=== PATIENT | female | born 1995 | race Caucasian/White ===

== ENCOUNTER → 2017-02-28 | Outpatient (CLI) | payer OTHER ==
--- NOTE | 2017-03-01 07:55 | US ---
EXAMINATION TYPE: US kidneys/renal and bladder DATE OF EXAM: 02/28/2017 6:13 PM COMPARISON: NONE CLINICAL HISTORY: RLQ Pain R10.31, R10.9 R Flank Pain. Patient is 35 weeks . EXAM MEASUREMENTS: Right Kidney: 10.8 x 6.4 x 4.2 cm Left Kidney: 11.2 x 4.3 x 4.7 cm Post Void Residual Volume: emptied fully Right Kidney: mild hydronephrosis is noted Left Kidney: No hydronephrosis or masses seen Bladder: wnl Bilateral Jets seen: yes Normal Post Void Residual: Yes IMPRESSION: Mild right hydronephrosis with no definite nephrolithiasis.
== END | disposition home or self-care (01) ==
LOC: RADUSMAIN 17:46
PROVIDERS: ATTEND Obstetrics & Gynecology
DX: N13.30 Unspecified hydronephrosis (principal)
CPT/HCPCS: 76770

== ENCOUNTER 2017-03-23 23:03 | Inpatient (IN) | payer OTHER ==
--- NOTE | 2017-03-23 23:33 | P.HPOB ---
History of Present Illness H&P Date: 03/23/17 Chief Complaint: Strong regular uterine contractions This is a 21-year-old white female 2 para 1001 EDC 04/03/2017 at 38-3/7 weeks' gestation. Patient presents tonight to our hospital, despite having care with a physician out of [place], [place]. She states she has been having strong regular uterine contractions for several hours. She denies vaginal bleeding or fluid leakage. Fetus is been active throughout the . Past medical history is essentially negative. Past surgical history negative. Current medications vitamins daily and patient is on day 4 of Keflex therapy for urinary tract infection. ALLERGIES none known. Social history patient is a smoker, she states 6 cigarettes per day for approximately 2-3 years. She denies alcohol or drug use with the . Family history is noncontributory. Past obstetric history 6 lbs. 13 oz. vaginal delivery 2014 of liveborn female , patient states uncomplicated. history is unknown, care has been given through Dr. Valenzuela in [place], [place]. On exam this is a young female, 5 foot 2 inches, 157 pounds, temperature 97.5, blood pressure 109/59, 1:15 pulse, 96% O2 saturation. The general physical exam is within normal limits. The cervix is 8 cm dilated, 100% effaced, -2 station, vertex presentation. Artificial amniorrhexis reveals clear fluid. heart rate is in the 140s with overall diminished variability, patient states she smoked a cigarette in the car before coming up to the unit this evening. No decelerations are noted. Impression: 38-3/7 weeks intrauterine , care elsewhere, here in active labor. Patient states group B strep cultures are negative. She is currently on Keflex for UTI. Plan: Close maternal and surveillance. Anticipate normal spontaneous vaginal delivery. I will give penicillin G 6 million units now for unknown group B strep status as well as current UTI. Epidural was offered at this time , and patient declines. Review of Systems Constitutional: Reports as per HPI Past Medical History Past Medical History: No Reported History History of Any Multi-Drug Resistant Organisms: None Reported Past Surgical History: No Surgical Hx Reported Past Psychological History: No Psychological Hx Reported Smoking Status: Never smoker Past Alcohol Use History: None Reported Past Drug Use History: None Reported Medications and Allergies Home Medications and Allergies Comment(s): keflex for UTI, dosage unknown Home Medications Medication Instructions Recorded Confirmed Type No Known Home Medications [No 10/20/14 10/20/14 History Known Home Medications] Allergies Allergy/AdvReac Type Severity Reaction Status Date / Time No Known Allergies Allergy Verified 10/20/14 19:14 Exam See dictation under HPI, please Assessment and Plan Plan: Close maternal and surveillance. We'll give penicillin G 6 million units now for unknown group B strep status as well as current urinary tract infection. Epidural has been offered, and is declined. Anticipate normal spontaneous vaginal delivery. Time with Patient: Less than 30
[2017-03-23] MEDS ORDERED: OXYTOCIN 20 UNITS/1000 ML NS 1,000 ML IV SCH (23:45)
[2017-03-23] MEDS ORDERED: LACTATED RINGERS 1,000 ML IV SCH ×2 (23:45)
[2017-03-23] MEDS ORDERED: TERBUTALINE 1 MG/ML VIAL SQ PRN ×2 (23:54→23:56)
[2017-03-23] MEDS ORDERED: OXYTOCIN 10 UNIT/ML 1 ML VIAL IM PRN ×2 (23:54→23:56)
[2017-03-23] MEDS ORDERED: LIDOCAINE 1% (PF) 10 MG/ML (30 ML SDV) SQ PRN ×2 (23:54→23:56)
[2017-03-23] MEDS ORDERED: CARBOPROST TROMETHAMINE 250 MCG/ML 1 ML AMP IM PRN ×2 (23:54→23:56)
[2017-03-23] MEDS ORDERED: METHYLERGONOVINE 0.2 MG/ML 1 ML AMP IM PRN ×2 (23:54→23:56)
[2017-03-24] MEDS ORDERED: LIDOCAINE 1% (PF) 10 MG/ML (30 ML SDV) SQ PRN (00:02)
[2017-03-24] MEDS ORDERED: CARBOPROST TROMETHAMINE 250 MCG/ML 1 ML AMP IM PRN (00:02)
[2017-03-24] MEDS ORDERED: TERBUTALINE 1 MG/ML VIAL SQ PRN (00:02)
[2017-03-24] MEDS ORDERED: OXYTOCIN 10 UNIT/ML 1 ML VIAL IM PRN (00:02)
[2017-03-24] MEDS ORDERED: METHYLERGONOVINE 0.2 MG/ML 1 ML AMP IM PRN (00:02)
[2017-03-24] MEDS ORDERED: PENICILLIN G POTASSIUM 5,000,000 UNIT in DEXTROSE 5% IN WATER 100 ML IVPB STA ×2 (00:09)
[2017-03-24] MEDS ORDERED: BUTORPHANOL 1 MG/ML 1 ML VIAL IV PRN (00:13)
[2017-03-24] MEDS ORDERED: LACTATED RINGERS 1,000 ML IV SCH (00:15)
[2017-03-24 00:36] LABS: Basophils % (A) 0 %; CHCM 34.1; Eosinophils % (A) 0 %; HCT 34.1 % (34.0-46.0); HDW 3.07; HGB 11.6 gm/dL (11.4-16.0); Luc # (Auto) 0.21; Luc % (Auto) 2; Lymphocytes # (A) 1.2 k/uL (1.0-4.8); Lymphocytes % (A) 8 %; MCH 30.9 pg (25.0-35.0); MCHC 33.9 g/dL (31.0-37.0); MCV 91.2 fL (80.0-100.0); Mean Platelet Volume 9.2; Monocytes # (A) 0.8 k/uL (0-1.0); Monocytes % (A) 6 %; Neutrophils # (A) 12.1 k/uL (1.3-7.7); Neutrophils % (A) 85 %; RBC 3.74 m/uL (3.80-5.40); RDW 12.8 % (11.5-15.5); WBC 14.3 k/uL (4.0-11.0); WBC (Perox) 15.17
[2017-03-24] MEDS ORDERED: diphenhydrAMINE 25 MG CAP PO PRN (00:49)
[2017-03-24] MEDS ORDERED: SIMETHICONE 80 MG CHEWABLE PO PRN (00:49)
[2017-03-24] MEDS ORDERED: WITCH HAZEL 1 EACH MED..PAD TOPICAL PRN (00:49)
[2017-03-24] MEDS ORDERED: LANOLIN CREAM 5 GM TUBE TOPICAL PRN (00:49)
[2017-03-24] MEDS ORDERED: BENZOCAINE/MENTHOL SPRAY 1 GM/SPRAY AEROSOL TOPICAL PRN (00:49)
[2017-03-24] MEDS ORDERED: HYDROCORTISONE 2.5% RECTAL CREAM 30 GM TUBE RECTAL PRN (00:49)
[2017-03-24] MEDS ORDERED: ZOLPIDEM 5 MG TAB PO PRN (00:49)
[2017-03-24] MEDS ORDERED: ACETAMINOPHEN TAB 325 MG TAB PO PRN (00:49)
[2017-03-24] MEDS ORDERED: diphenhydrAMINE ELIXIR 25 MG/10 ML CUP PO PRN (00:49)
[2017-03-24] MEDS ORDERED: diphenhydrAMINE 50 MG/ML 1 ML VIAL IVP PRN ×2 (00:49)
[2017-03-24] MEDS ORDERED: diphenhydrAMINE 50 MG CAP PO PRN (00:49)
--- NOTE | 2017-03-24 00:49 | P.PROBDLV ---
Vaginal Delivery Note - . Vaginal Delivery Note: This is a 21-year-old white female 3 para 1011 EDC 04/03/2017 at 38-5/7 weeks' gestation. Patient presented in active spontaneous labor. She did receive care at another institution, but chose to come to our hospital for reasons unknown. Fetus has been active throughout the . She denied vaginal bleeding or fluid leakage. On admission she was 8 cm dilated, 100% effaced, -1 station, vertex presentation. heart rate was in the 140s with good variability consistent with reactive NST. Artificial amniorrhexis revealed clear fluid. Epidural was offered, but declined per the patient. She did receive Stadol 1 mg. Patient progressed well through the first stage of labor. She was judged to be completely dilated and began the second stage of labor at that time. The perineal body was prepped and draped in the usual sterile fashion. The infant' s head was delivered in the occiput anterior position and she restituted accordingly. There was no nuchal cord noted. The left or anterior shoulder was delivered easily from underneath the pubic symphysis at which time the oropharynx, nasopharynx and external nares were all bulb suctioned on the perineal body. Patient was officially delivered of a liveborn female infant at 0032 hours. The umbilical cord was doubly clamped and ligated, she was handed to waiting nurses for evaluation where scores of 8 and 9 at one and 5 minutes respectively were given. Cord blood was sent to the lab for unknown Rh status. Penicillin G was ordered for unknown group B strep status, but this had not been received from the pharmacy by time of delivery. The uterus was massaged, and the placenta delivered spontaneously, intact with trivascular cord at 0035 hours. At this time inspection of the cervix, vagina, perineum, periurethral, and perirectal areas revealed no lacerations and no defects. Total estimated blood loss 250 mL 's. All sponge needle and instrument counts are correct at the end of the procedure. Patient and her fianc are allowed to begin the bonding experience in the LDR. weighed 3395 g or 8 lbs. 7 oz.
[2017-03-24] MEDS: IBUPROFEN 600 MG TAB PO PRN ×3 (01:06→22:00)
[2017-03-24] MEDS ORDERED: PENICILLIN G POTASSIUM 2,500,000 UNIT in DEXTROSE 5% IN WATER 100 ML IVPB SCH ×2 (04:30)
[2017-03-24] MEDS ORDERED: NON-FORMULARY DRUG (Pnv With Ca,No.72/Iron/Fa [Prenatal Plus Tablet] 1 TAB) PO SCH (09:00)
[2017-03-24] MEDS: SENNOSIDES-DOCUSATE SODIUM 1 EACH TAB PO SCH (13:09)
[2017-03-24] MEDS ORDERED: Rhogam IMMUNE GLOBULIN 1,500 UNIT/1 ML IM ONE (17:04)
[2017-03-24] MEDS: Acetaminophen-Codeine 300-30mg TAB PO PRN (23:28)
[2017-03-25] MEDS: SENNOSIDES-DOCUSATE SODIUM 1 EACH TAB PO SCH (01:00)
--- NOTE | 2017-03-25 08:32 | P.DS ---
Providers Date of admission: 03/23/17 23:15 Expected date of discharge: 03/25/17 Attending physician: Josette Mace Primary care physician: Josette Mace - Discharge Diagnosis(es) (1) Normal spontaneous vaginal delivery Current Visit: Yes Status: Acute (2) Rh negative, maternal Current Visit: Yes Status: Acute (3) Spontaneous onset of labor Current Visit: Yes Status: Acute Hospital Course: This is a 21-year-old 3 now para 2012 woman who presented in spontaneous active labor at term. Following admission she underwent artificial rupture of membranes. She received Stadol. She went on to deliver a liveborn female infant over an intact perineum with Apgars of 8 at 1 minute and 9 at 5 minutes weighing 8 lbs. 7 oz. The patient's course was unremarkable. By the morning of day #1 she was ambulating and voiding without difficulty, tolerating a general diet, her lochia was minimal and her exam was benign. She was therefore discharged home with routine instructions for care and follow-up. Her doctor is in [place], [place] and she plans on having her care there. She'll share a history of depression with her delivery in 2014. She was on Zoloft at that time. We will send in a prescription for this medication to have on hand should she need it. She is strongly encouraged should she feel like she is having worsening depression to either call our office or her physician in [place] for immediate follow-up. She does report good family support at home. Procedures: Normal spontaneous vaginal delivery Patient Condition at Discharge: Good Plan - Discharge Summary New Discharge Prescriptions: Sertraline HCl [Zoloft] 50 mg PO DAILY #30 tablet Discharge Medication List Pnv with Ca,No.72/Iron/FA [ Plus Tablet] 1 tab PO DAILY 03/23/17 [ History] Sertraline HCl [Zoloft] 50 mg PO DAILY #30 tablet 03/25/17 [Rx] Activity/Diet/Wound Care/Special Instructions: Follow-up with primary degreaser operator in 6 weeks . Call with any concerning signs or symptoms including heavy vaginal bleeding, severe abdominal pain, fever greater than 101, swelling or redness of the lower extremities, foul vaginal discharge, or signs of depression. May start zoloft 50 mg daily with signs of post depression. Nothing in the vagina for 6 weeks after delivery, specifically no intercourse. Discharge Disposition: HOME SELF-CARE
[2017-03-25 08:59] VITALS: BP 103/71; PULSE 66; RESP 18; TEMP 97.5
[2017-03-25] MEDS: Acetaminophen-Codeine 300-30mg TAB PO PRN (11:14)
== END 2017-03-25 11:50 | disposition home or self-care (01) | DRG 774 ==
LOC: FBPOP 23:03 → 4FBP 23:15
PROVIDERS: ADMIT Obstetrics & Gynecology; ATTEND Obstetrics & Gynecology
PROC: 10E0XZZ Delivery of Products of Conception, External Approach (ICD-10-PCS; principal; 2017-03-24)
PROC: 3E0234Z Introduction of Serum, Toxoid and Vaccine into Muscle, Percutaneous Approach (ICD-10-PCS; 2017-03-24)
DX: O98.82 Other maternal infectious and parasitic diseases complicating childbirth (principal); N39.0 Urinary tract infection, site not specified; O36.0930 Maternal care for other rhesus isoimmunization, third trimester, not applicable or unspecified; O99.334 Smoking (tobacco) complicating childbirth; F17.210 Nicotine dependence, cigarettes, uncomplicated; Z37.0 Single live birth; Z3A.38 38 weeks gestation of pregnancy; Z79.899 Other long term (current) drug therapy; Z86.59 Personal history of other mental and behavioral disorders
CPT/HCPCS: 85025; 85461; 86762; 86850; 86870; 86880; 86900; 86901; 88307

== ENCOUNTER 2017-12-27 00:02 | Outpatient (CLI) | payer OTHER ==
[2017-12-27 01:30] VITALS: BP 135/62; PULSE 111; RESP 16; TEMP 97.2
--- NOTE | 2017-12-27 06:11 | P.MSEPDOC ---
Presenting Problems - Arrival Data Date of Arrival on Unit: 12/27/17 Time of Arrival on Unit: 00:02 Mode of Transport: Wheelchair - Complaint OB-Reason for Admission/Chief Complaint: Possible Onset of Labor Comment: contx all day, became more painful around 7pm Medical History - Information : 4 Para: 2 Term: 2 : 0 Abortions: Spontaneous or Elective: 1 Number of Living Children: 2 - Gestational Age Gestational Age by NAVJOT (wks/days): 35 Weeks and 0 Days - History Complications: Placenta Previa Review of Systems - Review of Systems Constitutional: No problems Breast: No problems ENT: No problems Cardiovascular: No problems Respiratory: No problems Gastrointestinal: No problems Genitourinary: No problems Musculoskeletal: No problems Neurological: No problems Skin: No problems Vital Signs - Temperature Temperature: 97.2 F Temperature Source: Temporal Artery Scan - Pulse Right Sitting Brachial Pulse Rate: 111 Pulse Assessment Method: Automatic Cuff - Respirations Respiratory Rate: 16 Oxygen Delivery Method: Room Air - Blood Pressure Right Arm Sitting Blood Pressure: 135/62 Blood Pressure Mean: 86 Blood Pressure Source: Automatic Cuff Medical Screen Scoring (Pre) - Cervical Exam Dilation: Exam Deferred Effacement: Exam Deferred Membranes: Intact - Uterine Contractions Frequency: < 36 weeks = 6 Duration: > 40 seconds = 2 Intensity: N/A - Maternal Vital Signs Maternal Temperature: N/A Maternal Blood Pressure: N/A Signs of Preeclampsia: N/A Maternal Respirations: N/A - Pain Assessment Pain Location and Character: Lower, Abdomen Pain Scale Used: Numeric (1 - 10) Pain Intensity: 7 Pain Management Goal: 3 Pain Description: *Acute, Cramping Pain Radiation Location: n/a Pain Frequency: Intermittent Pain Duration: 6 Pain Duration Units: Hours Pain Behavior: Vocalization Pain Aggravating Factors: Activity - Maternal Trauma Maternal Trauma: N/A - Assessment Baseline FHR: 135 Heart Rate - NICHD Category: Category I (Normal) = 0 NST: Reactive Position: N/A - Total Score Total Score (Pre): 8 - Level of Risk Level of Risk: Medium (6-9) Physician Notification (Pre) - Physician Notified Physician Notified Date: 12/27/17 Physician Notified Time: 00:46 Physician/Practitioner Notifed:: sue Spoke With: sue New Order Received: Yes - Notification Comment Comment: pt to be discharged home, to call dispenser operator dee. Disposition - Disposition OB Disposition: Discharge to home Discharge Date: 12/27/17 Discharge Time: 01:07 I agree with the RN Medical Screening Exam: Yes Risk & Benefit of care provided described in d/c instruction: Yes Diagnosis: FALSE LABOR BEFORE 37 COMPLETED WEEKS OF GEST, THIRD TRI (Patient is getting care in [facility]. She reports having a placenta previa and care per a nurse dispenser operator there. Patient is having no bleeding and was found not to be in labor. Patient instructed to call her physician this evening for further follow-up and obviously advised not to have a vaginal delivery with a placenta previa.)
== END 2017-12-27 01:07 | disposition home or self-care (01) ==
LOC: FBPOP 00:02
PROVIDERS: ATTEND Obstetrics & Gynecology
DX: O47.03 False labor before 37 completed weeks of gestation, third trimester (principal); Z3A.35 35 weeks gestation of pregnancy
CPT/HCPCS: 59025; G0463; 99213

== ENCOUNTER 2019-07-26 11:55 | Emergency (ER) | payer OTHER ==
[2019-07-26 11:59] VITALS: RESP 18
[2019-07-26 13:23] LABS: Basophils % (A) 0 %; Eosinophils # (A) 0.3 k/uL (0-0.7); Eosinophils % (A) 4 %; HCT 40.4 % (34.0-46.0); HGB 13.9 gm/dL (11.4-16.0); Lymphocytes # (A) 2.4 k/uL (1.0-4.8); Lymphocytes % (A) 31 %; MCH 30.5 pg (25.0-35.0); MCHC 34.5 g/dL (31.0-37.0); MCV 88.3 fL (80.0-100.0); Monocytes # (A) 0.5 k/uL (0-1.0); Monocytes % (A) 7 %; Neutrophils # (A) 4.4 k/uL (1.3-7.7); Neutrophils % (A) 57 %; Platelet Count 281 k/uL (150-450); RBC 4.57 m/uL (3.80-5.40); RDW 14.8 % (11.5-15.5); WBC 7.7 k/uL (3.8-10.6)
--- NOTE | 2019-07-26 13:32 | ED ---
Female Urogenital HPI - General Chief complaint: Urogenital Stated complaint: Poss Ectopic Pregancy Time Seen by Provider: 07/26/19 12:27 Source: patient, RN notes reviewed, old records reviewed Mode of arrival: ambulatory Limitations: no limitations - History of Present Illness Initial comments: This is a 24-year-old female the ER for evaluation. Today patient denying for evaluation regards to possible ectopic versus abnormal outpatient. Patient's has had multiple pregnancies, 4 living kids at least one . Patient was presenting for and clinic limited ultrasound. Unable to find a positive IUP. Patient sent ER for formal ultrasound for evaluation regarding patient's . Patient denies any vaginal bleeding or pain. No other complaints MD Complaint: other (Positive with no IUP noted on ultrasound) -: unknown Location: suprapubic (No pain) Quality: other (Asymptomatic) Improves with: none Worsens with: none Last Menstrual Period: 05/29/19 Patient : Yes Associated Symptoms: denies other symptoms - Related Data Home Medications Medication Instructions Recorded Confirmed No Known Home Medications 07/26/19 07/26/19 Allergies Allergy/AdvReac Type Severity Reaction Status Date / Time No Known Allergies Allergy Verified 07/26/19 12:18 Review of Systems ROS Statement: Those systems with pertinent positive or pertinent negative responses have been documented in the HPI. ROS Other: All systems not noted in ROS Statement are negative. Past Medical History Past Medical History: No Reported History History of Any Multi-Drug Resistant Organisms: MRSA Date of last positivie culture/infection: unknown MDRO Source:: right axilla Past Surgical History: No Surgical Hx Reported Past Anesthesia/Blood Transfusion Reactions: No Reported Reaction Past Psychological History: No Psychological Hx Reported Smoking Status: Current every day smoker Past Alcohol Use History: None Reported Past Drug Use History: None Reported - Past Family History Mother Family Medical History: Cancer General Exam Limitations: no limitations General appearance: alert, in no apparent distress Head exam: Present: atraumatic, normocephalic, normal inspection Eye exam: Present: normal appearance, EOMI. Absent: scleral icterus, conjunctival injection, periorbital swelling ENT exam: Present: normal exam, mucous membranes moist Neck exam: Present: normal inspection. Absent: tenderness, meningismus, lymphadenopathy Respiratory exam: Present: normal lung sounds bilaterally. Absent: respiratory distress, wheezes, rales, rhonchi, stridor Cardiovascular Exam: Present: regular rate, normal rhythm, normal heart sounds. Absent: systolic murmur, diastolic murmur, rubs, gallop, clicks GI/Abdominal exam: Present: soft, normal bowel sounds. Absent: distended, tenderness, guarding, rebound, rigid Extremities exam: Present: normal inspection, full ROM, normal capillary refill. Absent: tenderness, pedal edema, joint swelling, calf tenderness Back exam: Present: normal inspection Neurological exam: Present: alert, oriented X3, CN II-XII intact Psychiatric exam: Present: normal affect, normal mood Skin exam: Present: warm, dry, intact, normal color. Absent: rash Course Vital Signs 07/26/19 11:56 Temperature 97.9 F Pulse Rate 105 H Respiratory 18 Rate Blood Pressure 133/80 O2 Sat by Pulse 99 Oximetry - Reevaluation(s) Reevaluation #1: 07/26/19 13:32 Medical records reviewed Reevaluation #2: 07/26/19 14:30 Spoke with patient at length regarding findings here in the ER, possible ectopic versus early versus versus molar . Patient's questions answered, understand necessity for repeat lab testing in 2 days - Consultations Consultation #1: Spoke with Dr. Barrientos regarding patient, informed of patient's findings, will follow patient in 2 days Medical Decision Making - Medical Decision Making 22 female the ER with inconclusive early , molar , ectopic or . Patient has no findings on ultrasound currently, beta hCG is significantly elevated at 19,000, patient follow-up with OB - Lab Data Result diagrams: 07/26/19 12:51 Lab Results 07/26/19 07/26/19 07/26/19 Range/Units 12:51 12:51 12:51 WBC 7.7 (3.8-10.6) k/uL RBC 4.57 (3.80-5.40) m/uL Hgb 13.9 (11.4-16.0) gm/dL Hct 40.4 (34.0-46.0) % MCV 88.3 (80.0-100.0) fL MCH 30.5 (25.0-35.0) pg MCHC 34.5 (31.0-37.0) g/dL RDW 14.8 (11.5-15.5) % Plt Count 281 (150-450) k/uL Neutrophils % 57 % Lymphocytes % 31 % Monocytes % 7 % Eosinophils % 4 % Basophils % 0 % Neutrophils # 4.4 (1.3-7.7) k/uL Lymphocytes # 2.4 (1.0-4.8) k/uL Monocytes # 0.5 (0-1.0) k/uL Eosinophils # 0.3 (0-0.7) k/uL Basophils # 0.0 (0-0.2) k/uL HCG, Quant 9208.8 mIU/mL Blood Type B Negative Blood Type Recheck B Neg Bld Type Recheck Status No Antibody Screen NEGATIVE Spec Expiration Date 07/29/2019 - 7528 - Radiology Data Radiology results: report reviewed ([facility] shows no IUP, no ectopic ), image reviewed Disposition Clinical Impression: Narrative: Repeat Bhcg - 2 days r/o Ectopic Disposition: HOME SELF-CARE Condition: Good Instructions (If sedation given, give patient instructions): (ED), Ectopic (DC) Is patient prescribed a controlled substance at d/c from ED?: No Referrals: None,Stated [Primary Care Provider] - 1-2 days
--- NOTE | 2019-07-26 13:59 | US ---
EXAMINATION TYPE: Transabdominal DATE OF EXAM: 07/26/2019 1:49 PM COMPARISON: NONE CLINICAL HISTORY: pain. Went to clinic today and they could not find a fetus, no pain, no b leeding EXAM PERFORMED: OBTA/OBTV EXAM MEASUREMENTS: GESTATIONAL AGE / DATING Physician Established: Not yet established Dates by LMP: (8 weeks/2 days) EDC: 03/04/2020 Dates by First Scan: No previous this is first scan Dates by Current Scan for: No IUP seen at this time MATERNAL ANATOMY Uterus: 8.6 x 5.7 x 5.3cm Right Ovary: 3.1 x 2.5 x 1.9cm Left Ovary: 2.8 x 2.2 x 2.9cm, 1.8cm cystic area noted Post CDS / Adnexa: mild free fluid Presence of free fluid: mild within cds and right adnexa Presence of corpus luteal cyst: possible on the right = 2.1cm Presence of subchorionic bleed: no GESTATION / SURVEY Endometrium was thickened = 3.1cm, with no signs of IUP Date of LMP: 05/29/2019 Beta HcG (if available): 9,208 IMPRESSION: No evident intrauterine . There is an abnormal thickened endometrium and free fluid within t he pelvis. No evident adnexal mass to suggest ectopic . Correlate clinically.
[2019-07-26 14:30] LABS: Appearance,Urine Clear (Clear); Bilirubin,Urine Negative (Negative); Blood,Urine Negative (Negative); Color,Urine Yellow; Glucose,Urine (UA) Negative (Negative); Ketones,Urine Negative (Negative); Leukocyte Esterase,Urine Negative (Negative); Nitrite,Urine Negative (Negative); Protein,Urine Negative (Negative); Specific Gravity,Urine 1.024 (1.001-1.035); Urobilinogen,Urine <2.0 mg/dL (<2.0)
[2019-07-26 15:04] VITALS: BP 121/74; PULSE 68; TEMP 98
== END 2019-07-26 15:04 | disposition home or self-care (01) ==
LOC: EC 11:55
DX: Z36.9 Encounter for antenatal screening, unspecified (principal); O99.332 Smoking (tobacco) complicating pregnancy, second trimester; F17.200 Nicotine dependence, unspecified, uncomplicated; Z86.14 Personal history of Methicillin resistant Staphylococcus aureus infection; Z3A.14 14 weeks gestation of pregnancy
CPT/HCPCS: 36415; 76801; 76817; 81003; 84702; 85025; 86850; 86900; 86901; 99284

== ENCOUNTER → 2019-07-28 | Outpatient (CLI) | payer OTHER | END | disposition home or self-care (01) | LOC: LABMAIN 11:21 | PROVIDERS: ATTEND Emergency Medicine | DX: Z36.9 Encounter for antenatal screening, unspecified (principal) | CPT/HCPCS: 36415; 84702 ==

== ENCOUNTER → 2019-07-30 | Outpatient (CLI) | payer OTHER | END | disposition home or self-care (01) | LOC: LABWHC1 15:32 | PROVIDERS: ATTEND Obstetrics & Gynecology | DX: Z34.80 Encounter for supervision of other normal pregnancy, unspecified trimester (principal) | CPT/HCPCS: 36415; 84702 ==

== ENCOUNTER → 2019-08-01 | Outpatient (CLI) | payer OTHER ==
--- NOTE | 2019-08-01 09:45 | US ---
EXAMINATION TYPE: Transabdominal DATE OF EXAM: 08/01/2019 8:38 AM COMPARISON: 07/26/2019 CLINICAL HISTORY: Z36 confrim dates. Patient states no pain or spotting. Compare US from EC performe d on 07/26/2019 EXAM PERFORMED: Transvaginal (TV) and Transabdominal (TA) EXAM MEASUREMENTS: GESTATIONAL AGE / DATING Dates by LMP: (8 weeks/6 days) EDC: 03/06/2020 Dates by First Scan: Unable to date by previous ultrasound Dates by Current Scan for: ( 5 weeks/2 days) EDC: 03/31/2020 MATERNAL ANATOMY Uterus: 10.7 x 5.9 x 4.5 cm Right Ovary: 3.9 x 2.4 x 2.0 cm Left Ovary: 2.6 x 1.5 x 2.0 cm Post CDS / Adnexa: Free fluid seen adjacent to right ovary. Prominent vessels in bilateral adnexa. C ystic appearing lesion in left adnexa = 1.4 x 1.0 x 0.9 cm. This may represent a paraovarian cyst or prominent adjacent vessel. Presence of free fluid: adjacent to right ovary Presence of corpus luteal cyst: Right ovarian lesion with peripheral vascular flow = 2.4 x 2.1 x 1.3 cm Presence of subchorionic bleed: adjacent to GS in right uterus = 1.1 x 1.9 x 0.6 cm GESTATION / SURVEY CRL: not visualized at this time MSD: 1.3 cm (5 weeks/2 days) Yolk Sac (normal less than 6mm): 3.3 mm IUP: GS and YS visualized within endometrial cavity Date of LMP: 05/31/2019, Beta HcG (if available): 07/26/2019- 9,208 07/30/2019- 19,327.2 GS and YS visualized in endometrial canal. No CRL visualized. Prominent vessels visualized in bilat eral adnexa. IMPRESSION: pole is not yet seen within the gestational sac although the pole is not yet expected to be seen given the mean sac diameter. Overall findings likely relate to early intrauterine with small adjacent implantation bleed, however given the lack of visualization of the fet al pole at this time anembryonic or less likely ectopic remain considerations and short-term follow-up pelvic ultrasound is recommended in 5-7 days.
== END | disposition home or self-care (01) ==
LOC: RADUSMAIN 07:50
PROVIDERS: ATTEND Obstetrics & Gynecology
DX: Z36.9 Encounter for antenatal screening, unspecified (principal)
CPT/HCPCS: 76801; 76817